=== PATIENT | male | born 1950 | race African-American/Black ===

== ENCOUNTER 2020-02-08 07:57 | Emergency (ER) | payer MEDICARE, MEDICAID ==
[2020-02-08 08:03] VITALS: BP 160/73
[2020-02-08] MEDS ORDERED: CEPHALEXIN 500 MG CAPSULE PO ONE (10:06)
[2020-02-08] MEDS ORDERED: MUPIROCIN 2% OINTMENT 22 GM TP ONE (10:18)
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
== END 2020-02-08 11:03 | disposition home or self-care (01) ==
LOC: ER 07:57
DX: T23.242A Burn of second degree of multiple left fingers (nail), including thumb, initial encounter (principal); T23.241A Burn of second degree of multiple right fingers (nail), including thumb, initial encounter; X19.XXXA Contact with other heat and hot substances, initial encounter; Y93.89 Activity, other specified; Y92.009 Unspecified place in unspecified non-institutional (private) residence as the place of occurrence of the external cause; I10 Essential (primary) hypertension; E11.9 Type 2 diabetes mellitus without complications; E78.00 Pure hypercholesterolemia, unspecified; Z91.14 Patient's other noncompliance with medication regimen; Z79.891 Long term (current) use of opiate analgesic; Z76.0 Encounter for issue of repeat prescription
CPT/HCPCS: 99283; A9270 ×2; J3490